=== PATIENT | male | born 2000 | race Hispanic/Latino ===

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

== ENCOUNTER 2022-02-03 15:25 | Emergency (ER) | payer OTHER ==
--- OUTSIDE RECORDS SUMMARY | 2022-02-03 15:29 | XMS REPORT | Continuity of Care Document ---
:2000 Author Organization [facility] t Address [address] [place] [address] Care Team Providers Name Role Phone Nathalie Dumont Primary Care Physician [phone] Problems This patient has no known problems. Allergies, Adverse Reactions, Alerts Allergy Allergy Status Severity Reaction(s) Onset Inactive Treating Comm ents Source Name Type Date Date Clinician Mesna - Propensi Active 0 Intraven ty to 6-17 ous adverse 00:00: reaction 00 to drug Medications Ordered Filled Start Stop Current Ordering Indication Dosage Frequency Signature Comments Components Source Medication Medication Date Date Medication? Clinician (SIG) Name Name TAKE 1 2021-0 No 5 TABLET 7-20 DAILY. 00:00: 00 [...] tablet,exte 00:00: nded 00 release Concerta 36 2018-1 No 2mg mg 2-17 tablet,exte 00:00: nded 00 release trazodone 2018-1 No 1mg 50 mg 2-17 tablet 00:00: 00 mupirocin 2 2018- No 1% % topical 2-02 ointment 00:00: 00 cephalexin 2018- No 1mg 500 mg 2-02 capsule 00:00: 00 Bromfed DM 2019-1 No 75mg/5 2 mg-30 2-02 mL mg-10 [...] pounds Height Measured 2020-04-24 17:08:00 73.23 inches BP Systolic 2019-06-20 09:28:00 127 mm[Hg] BP Diastolic 2019-06-20 09:28:00 75 mm[Hg] Weight Measured 2019-06-20 09:28:00 193.00 pounds Height Measured 2019-06-20 09:28:00 73.23 inches Body Temperature 2019-06-20 09:28:00 97.90 degrees Heart Rate 2019-06-20 09:28:00 67.00 /min Respiratory Rate 2019-06-20 09:28:00 18.00 /min Height Measured 2019-05-03 15:38:00 72.05 inches Body Temperature 2019-05-03 15:38:00 98.20 degrees Heart Rate 2019-05-03 15:38:00 83.00 /min Respiratory Rate 2019-05-03 15:38:00 BP Systolic 2019-05-03 15:38:00 137 mm[Hg] BP Diastolic 2019-05-03 15:38:00 57 mm[Hg] Weight Measured 2019-05-03 15:38:00 194.60 pounds BP Systolic 2019-04-30 11:06:00 143 mm[Hg] BP [...] Goal Plan of Care Note [code = 58291-6] Goal Plan of Care Note [code = 44390-8] Goal Plan of Care Note [code = 83595-2] Goal Plan of Care Note [code = 86074-3] Goal Plan of Care Note [code = 21983-2] Goal Plan of Care Note [code = 71546-1] Goal Plan of Care Note [code = 73784-0] Goal Plan of Care Note [code = 06707-6] Goal Plan of Care Note [code = 56372-5] Goal Plan of Care Note [code = 96028-4] Goal Plan of Care Note [code = 85497-4] Goal Plan of Care Note [code = 85175-7] Goal Plan of Care Note [code = 01939-2] Goal Plan of Care Note [code = 53218-6] Goal Plan of Care Note [code = 25222-4] Goal Plan of Care Note [code = 23834-6] Goal Plan of Care Note [code = 03109-8] Goal Plan of Care Note [code = 24041-1] Goal Plan of Care Note [code = 60975-4] Goal Plan of Care Note [code = 94068-8] Encounters Start End Encounter Admission Attending Care Care Encounter Source Date/Time Date/Time Type Type Clinicians Facility Department ID 2021-10-29 2021-10-29 Outpatient [id number] 00:00:00 00:00:00 Visit [id number] Results Test Description Test Time Test Comments Results Result Comments Source CT/NG, NAAT, URINE 2021-09-27 17:38:08 Test Item Value Reference Range Interpretation Comme nts GONORRHEA, NAAT NEGATIVE NEGATIVE IMPORTA NT NOTICE: SEE ANNOUNCEMENT AT (test code = [email or web address] Note: 76857) Assay methodolo gy is nucleic acid amplification by transcriptio n mediated amplification (TMA) utilizing the A ptima Combo 2 Assay. CHLAMYDIA, NAAT NEGATIVE NEGATIVE IMPORTA NT NOTICE: SEE ANNOUNCEMENT AT (test code = [email or web address]/TeachernowrineXenapto Note: 61037) Assay methodolo gy is nucleic acid amplification by transcriptio n mediated amplification (TMA) utilizing the A ptima Combo 2 Assay. GC AND CHLAMYDIA, AMPLIFIED, [id number] 00:00:00 Test Item Value Reference Range Interpretation Comments GONORRHEA, NAAT (test code = 86698) NEGATIVE CHLAMYDIA, NAAT (test code = 85138) NEGATIVE HIV 1/2 4TH GEN, RFLX [id number] 04:17:29 Test Item Value Reference Range Interpretation Comments HIV 1/2 4TH GEN, RFLX CONF (test NON-REACTIVE NON-REACTIVE code = 3514) HEPATITIS PANEL, [id number] 04:17:29 Test Item Value Reference Range Interpretation Comments HEPATITIS A IgM (test NON-REACTIVE NON-REACTIVE code = 77438) HEPATITIS B CORE IgM NON-REACTIVE NON-REACTIVE (test code = 4644) HEPATITIS B SURF AG NON-REACTIVE NON-REACTIVE (test code = 2739) HEPATITIS C ANTIBODY NON-REACTIVE NON-REACTIVE (test code = 4675) INTERPRETATION (NOTE) Hepatitis A HEPATITIS A: (test serology shows no code = 2552) evidence of acu te hepatitis A. INTERPRETATION (NOTE) Hepatitis B HEPATITIS B: (test serology shows no code = 98001) evidence of ac jarrod hepatitis B and no indication of exposure to hepatitis B vir us in the previous si xto eight months. INTERPRETATION (NOTE) Hepatitis C HEPATITIS C: (test serology shows no code = 50308) evidence of ex posure to hepatitisC v irus at this time. I t can take up to 12 m onths after exposure tothe hepatitis C vir us for antibodies to become detectab le in the blood in ce rtain patients. UNLES S OTHERWISE INDIC ATED, ALL TESTING PERFORMED [facility], [facility]. [address] [place] [id number] [place] [address] DIRECTOR: Madelin DAILEYIA NUMBER [id number] [place] [id number] 03:37:13 Test Item Value Reference Range Interpretation Comments RPR RESULT (test code = NON-REACTIVE NON-REACTIVE 3501) RPR TITER (test code = 3500) NOT INDIC. TITER NOT INDIC. HIV AB/AG COMBO RFLX [id number] 00:00:00 Test Item Value Reference Range Interpretation Comments HIV 1/2 4TH GEN, RFLX CONF (test NON-REACTIVE code = 3514) [id number] 00:00:00 Test Item Value Reference Range Interpretation Comments RPR RESULT (test code = NON-REACTIVE 3501) RPR TITER (test code = 3500) NOT INDIC. TITER [id number] 00:00:00 Test Item Value Reference Range Interpretation Comments RPR RESULT (test code = NON-REACTIVE 3501) RPR TITER (test code = 3500) NOT INDIC. TITER ACUTE HEPATITIS [id number] 00:00:00 Test Item Value Reference Range Interpretation Comments HEPATITIS A IgM (test code = NON-REACTIVE 08987) HEPATITIS B CORE IgM (test code NON-REACTIVE = 4644) HEPATITIS B SURF AG (test code = NON-REACTIVE 8939) HEPATITIS C ANTIBODY (test code NON-REACTIVE = 2175) INTERPRETATION HEPATITIS A: (NOTE) (test code = 2552) INTERPRETATION HEPATITIS B: (NOTE) (test code = 73508) INTERPRETATION HEPATITIS C: (NOTE) (test code = 08087) CHLAMYDIA/N. GONORRHOEAE RNA, [id number] 00:00:00 Test Item Value Reference Range Interpretation Comments CHLAMYDIA TRACHOMATIS RNA, TMA, NOT DETECTED UROGENITAL (test code = 49602-9) NEISSERIA GONORRHOEAE RNA, TMA, NOT DETECTED UROGENITAL (test code = 16636-4) COMMENT (test code = ) CBC (INCLUDES [...] BAND NEUTROPHILS DNR cells/uL (test code = 41238-2) ABSOLUTE METAMYELOCYTES (test DNR cells/uL code = 99059-2) ABSOLUTE MYELOCYTES (test DNR cells/uL code = 09870-7) ABSOLUTE PROMYELOCYTES (test DNR cells/uL code = 83877-9) ABSOLUTE LYMPHOCYTES (test 2025 cells/uL code = 731-0) ABSOLUTE MONOCYTES (test code 237 cells/uL = 742-7) ABSOLUTE EOSINOPHILS (test 120 cells/uL code = 711-2) ABSOLUTE BASOPHILS (test code 22 cells/uL = 704-7) ABSOLUTE BLASTS (test code = DNR cells/uL 02222-9) ABSOLUTE NUCLEATED RBC (test DNR cells/uL code = 46174-7) NEUTROPHILS (test code = 44.1 % 770-8) BAND NEUTROPHILS (test code = DNR % 764-1) METAMYELOCYTES (test code = DNR % 740-1) MYELOCYTES (test code = DNR % 749-2) PROMYELOCYTES (test code = DNR % 783-1) LYMPHOCYTES (test code = 47.1 % 736-9) REACTIVE LYMPHOCYTES (test DNR % code = 98062-0) MONOCYTES (test code = 5.5 % 5905-5) EOSINOPHILS (test code = 2.8 % 713-8) BASOPHILS (test code = 706-2) 0.5 % BLASTS (test code = 709-6) DNR % NUCLEATED RBC (test code = DNR /100WBC 00482-3) COMMENT(S) (test code = DNR 8251-1) HIV 1/2 ANTIGEN/ANTIBODY,FOURTH GENERATION [id number] 00:00:00 Test Item Value Reference Range Interpretation Comments HIV AG/AB, 4TH GEN (test code = NON-REACTIVE 39837-9) LIPID PANEL (REFL)[id number] 00:00:00 Test Item Value Reference Range Interpretation Comments CHOLESTEROL, TOTAL (test code 150 mg/dL = 2093-3) HDL CHOLESTEROL (test code = 54 mg/dL 2085-9) TRIGLYCERIDES (test code = 89 mg/dL 2571-8) LDL-CHOLESTEROL (test code = 79 mg/dL(calc) 29983-8) CHOL/HDLC RATIO (test code = 2.8 (calc) 9830-1) NON HDL CHOLESTEROL (test code 96 mg/dL(calc) = 62265-8) HEPATITIS PANEL, [id number] 00:00:00 Test Item Value Reference Range Interpretation Comments HEPATITIS A AB, TOTAL (test code REACTIVE = 25364-1) HEPATITIS B SURFACE ANTIBODY QL NON-REACTIVE (test code = 00551-1) HEPATITIS B SURFACE ANTIGEN NON-REACTIVE (test code = 5196-1) CONFIRMATION (test code = DNR 7905-3) HEPATITIS B CORE AB TOTAL (test NON-REACTIVE code = 76544-2) HEPATITIS C ANTIBODY (test code NON-REACTIVE = 81914-9) SIGNAL TO CUT-OFF (test code = 0.01 11791-1) COMPREHENSIVE METABOLIC [id number] 00:00:00 Test Item Value Reference Range Interpretation Comments GLUCOSE (test code = 113 mg/dL 2345-7) UREA NITROGEN (BUN) 13 mg/dL (test code = 3094-0) CREATININE (test code = 0.83 mg/dL 2160-0) eGFR NON-AFR. AZERBAIJANI DNR mL/min/1.73m2 (test code = 83221-9) eGFR DNR mL/min/1.73m2 (test code = 78901-0) BUN/CREATININE RATIO NOT APPLICABLE (calc) (test code = 3097-3) SODIUM (test code = 138 mmol/L 2951-2) POTASSIUM (test code = 4.2 mmol/L 2823-3) CHLORIDE (test code = 106 mmol/L 2075-0) CARBON DIOXIDE (test 23 mmol/L code = 2027-9) CALCIUM (test code = 10.2 mg/dL 64005-2) PROTEIN, TOTAL (test 7.6 g/dL code = 2885-2) ALBUMIN (test code = 4.6 g/dL 1751-7) GLOBULIN (test code = 3.0 g/dL(calc) 87169-5) ALBUMIN/GLOBULIN RATIO 1.5 (calc) (test code = 1759-0) BILIRUBIN, TOTAL (test 0.6 mg/dL code = 1975-2) ALKALINE PHOSPHATASE 204 U/L (test code = 6768-6) AST (test code = 19 U/L 1920-8) ALT (test code = 31 U/L 1742-6) RPR (MONITOR) W/REFL [id number] 00:00:00 Test Item Value Reference Range Interpretation Comments RPR (MONITOR) W/REFL TITER (test NON-REACTIVE code = 20990-5) HEMOGLOBIN [id number] 00:00:00 Test Item Value Reference Range Interpretation Comments HEMOGLOBIN A1c (test code = 5.7 %[facility] 45[facility]-4) CBC (INCLUDES DIFF/PLT)2018-07-19 00:00:00 Test Item [...] BAND NEUTROPHILS DNR cells/uL (test code = 43504-5) ABSOLUTE METAMYELOCYTES (test DNR cells/uL code = 23567-6) ABSOLUTE MYELOCYTES (test DNR cells/uL code = 01629-4) ABSOLUTE PROMYELOCYTES (test DNR cells/uL code = 43206-5) ABSOLUTE LYMPHOCYTES (test 1624 cells/uL code = 731-0) ABSOLUTE MONOCYTES (test code 151 cells/uL = 742-7) ABSOLUTE EOSINOPHILS (test 119 cells/uL code = 711-2) ABSOLUTE BASOPHILS (test code 22 cells/uL = 704-7) ABSOLUTE BLASTS (test code = DNR cells/uL 67742-0) ABSOLUTE NUCLEATED RBC (test DNR cells/uL code = 59140-1) NEUTROPHILS (test code = 46.8 % 770-8) BAND NEUTROPHILS (test code = DNR % 764-1) METAMYELOCYTES (test code = DNR % 740-1) MYELOCYTES (test code = DNR % 749-2) PROMYELOCYTES (test code = DNR % 783-1) LYMPHOCYTES (test code = 45.1 % 736-9) REACTIVE LYMPHOCYTES (test DNR % code = 71371-2) MONOCYTES (test code = 4.2 % 5905-5) EOSINOPHILS (test code = 3.3 % 713-8) BASOPHILS (test code = 706-2) 0.6 % BLASTS (test code = 709-6) DNR % NUCLEATED RBC (test code = DNR /100WBC 29935-2) COMMENT(S) (test code = DNR 8251-1) LIPID PANEL (REFL)2018-07-19 00:00:00 Test Item Value Reference Range Interpretation Comments CHOLESTEROL, TOTAL (test code 232 mg/dL = 2093-3) HDL CHOLESTEROL (test code = 40 mg/dL 2085-9) TRIGLYCERIDES (test code = 90 mg/dL 2571-8) LDL-CHOLESTEROL (test code = 172 mg/dL(calc) 72492-0) CHOL/HDLC RATIO (test code = 5.8 (calc) 9830-1) NON HDL CHOLESTEROL (test 192 mg/dL(calc) code = 54877-7) COMPREHENSIVE METABOLIC [id number] 00:00:00 Test Item Value Reference Range Interpretation Comments GLUCOSE (test code = 94 mg/dL 2345-7) UREA NITROGEN (BUN) 14 mg/dL (test code = 3094-0) CREATININE (test code = 0.73 mg/dL 2160-0) eGFR NON-AFR. AZERBAIJANI DNR mL/min/1.73m2 (test code = 96701-3) eGFR DNR mL/min/1.73m2 (test code = 72541-7) BUN/CREATININE RATIO NOT APPLICABLE (calc) (test code = 3097-3) SODIUM (test code = 139 mmol/L 2951-2) POTASSIUM (test code = 4.2 mmol/L 2823-3) CHLORIDE (test code = 103 mmol/L 5-0) CARBON DIOXIDE (test 23 mmol/L code = 2027-9) CALCIUM (test code = 10.3 mg/dL 19143-5) PROTEIN, TOTAL (test 7.9 g/dL code = 2885-2) ALBUMIN (test code = 4.7 g/dL 1751-7) GLOBULIN (test code = 3.2 g/dL(calc) 06900-3) ALBUMIN/GLOBULIN RATIO 1.5 (calc) (test code = 1759-0) BILIRUBIN, TOTAL (test 0.8 mg/dL code = 1975-2) ALKALINE PHOSPHATASE 387 U/L (test code = 6768-6) AST (test code = 19 U/L 1920-8) ALT (test code = 15 U/L 1742-6) [id number] 00:00:00 Test Item Value Reference Range Interpretation Comments TSH (test code = 3016-3) 2.12 mIU/L HEMOGLOBIN [id number] 00:00:00 Test Item Value Reference Range Interpretation Comments HEMOGLOBIN A1c (test code = 5.9 %[facility] 4548-4)
[2022-02-03] MEDS ORDERED: IBUPROFEN 200 MG TAB PO ONE (15:52)
[2022-02-03] MEDS ORDERED: IBUPROFEN 400 MG TAB ONE (15:53)
--- NOTE | 2022-02-03 16:54 | RAD REPORT ---
EXAM DESCRIPTION: RAD - Foot Right 3 View - 02/03/2022 4:41 pm CLINICAL HISTORY: PAIN COMPARISON: Foot Right 3 View dated 10/28/2016 FINDINGS: No fracture or dislocation is seen.
--- NOTE | 2022-02-03 17:06 | ER ---
Nurse's Notes [facility] Name: Richard Woods Age: 21 yrs Sex: Male : 2000 Arrival Date: 02/03/2022 Time: 15:30 Bed 10 Private MD: Diagnosis: Pain in right foot Presentation: 02/03 15:33 Chief complaint: Patient states: Tripped and fell down the stairs - 2-3 days ago. Pt ld1 c/o pain to right foot. Coronavirus screen: At this time, the client does not indicate any symptoms associated with coronavirus-19. Ebola Screen: No symptoms or risks identified at this time. Initial Sepsis Screen: Does the patient meet any 2 criteria? No. Patient's initial sepsis screen is negative. Does the patient have a suspected source of infection? No. Patient's initial sepsis screen is negative. Risk Assessment: Do you want to hurt yourself or someone else? Patient reports no desire to harm self or others. Onset of symptoms was February 03, 2022. 15:33 Method Of Arrival: Ambulatory ld1 15:33 Acuity: YANI 4 ld1 Triage Assessment: 15:35 General: Appears in no apparent distress. comfortable, Behavior is calm, cooperative, ld1 appropriate for age. Pain: Complains of pain in right foot Pain does not radiate. Pain currently is 6 out of 10 on a pain scale. Quality of pain is described as throbbing. EENT: No signs and/or symptoms were reported regarding the EENT system. Neuro: Level of Consciousness is awake, alert, obeys commands, Oriented to person, place, time, situation. Cardiovascular: Capillary refill < 3 seconds Patient's skin is warm and dry. Respiratory: Airway is patent Respiratory effort is even, unlabored. GI: Abdomen is flat, non-distended. : No signs and/or symptoms were reported regarding the genitourinary system. Derm: No signs and/or symptoms reported regarding the dermatologic system. Musculoskeletal: No signs and/or symptoms reported regarding the musculoskeletal system. Historical: - Allergies: 15:35 No Known Allergies; ld1 - Home Meds: 15:35 lisinopril 10 mg Oral tab 1 tab once daily [Active]; ld1 - PMHx: 15:35 Hypertensive disorder; ld1 - PSHx: 15:35 None; ld1 - Immunization history:: Adult Immunizations up to date, Client reports receiving the 2nd dose of the Covid vaccine. - Social history:: Smoking status: Patient denies any tobacco usage or history of. Patient/guardian denies using alcohol. Screenin:12 Abuse screen: Denies threats or abuse. Denies injuries from another. Nutritional ph screening: No deficits noted. Tuberculosis screening: No symptoms or risk factors identified. Fall Risk None identified. Assessment: 16:11 General: Appears in no apparent distress. comfortable, Behavior is calm, cooperative, ph appropriate for age. Pain: Complains of pain in right foot. Neuro: Level of Consciousness is awake, alert, obeys commands, Oriented to person, place, time, situation. Derm: Skin is healthy with good turgor, Skin is pink, warm \T\ dry. Derm: Bruising that is dark purple, on lateral side of right foot. Musculoskeletal: Circulation, motion, and sensation intact. Range of motion: intact in all extremities. Vital Signs: 15:33 Pulse 76; Resp 18; Temp 97.8(TE); Pulse Ox 100% ; Weight 95.25 kg; Height 6 ft. 2 in. ld1 (187.96 cm); Pain 6/10; 15:36 BP 163 / 93; ld1 15:33 Body Mass Index 26.96 (95.25 kg, 187.96 cm) ld1 ED Course: 15:30 Patient arrived in ED. mr 15:31 Evans Contrerasistin, [place] [facility] kb 15:31 Jose Francisco Scruggs MD is Attending Physician. kb 15:35 Triage completed. ld1 15:35 Arm band placed on right wrist. ld1 15:44 Lilly An, RN is Primary Nurse. ph 16:12 Patient has correct armband on for positive identification. Bed in low position. Call ph light in reach. Side rails up X 1. Door closed. Noise minimized. 16:43 Foot Right 3 View XRAY In Process Unspecified. EDMS Administered Medications: 16:11 Drug: Ibuprofen 600 mg Route: PO; ph 16:11 Follow up: Response: No adverse reaction ph Medication: 16:12 VIS not applicable for this client. ph Outcome: 17:05 Discharge ordered by . kb 17:31 Patient left the ED. ph Signatures: Dispatcher [employer] EDMS Ben, Joan, DOORKEEPER-C DOORKEEPER-Troyb Carmen Patiño mr Lilly An, RN RN Leyla Toney RN RN ld1
--- NOTE | 2022-02-03 17:06 | EDPHYS ---
Physician Documentation [facility] Name: Richard Woods Age: 21 yrs Sex: Male : 2000 Arrival Date: 02/03/2022 Time: 15:30 Bed 10 Private MD: [place] Physician Jose Francisco Scruggs HPI: 02/03 18:04 This 21 yrs old Male presents to ER via Ambulatory with complaints of Foot kb Injury. 18:04 The patient presents with pain. The complaints affect the right foot. Context: The kb problem was sustained at home, resulted from the patient falling, the patient can fully bear weight, the patient is able to ambulate. Onset: The symptoms/episode began/occurred 3 day(s) ago. Modifying factors: The symptoms are alleviated by nothing, the symptoms are aggravated by weight bearing. Associated signs and symptoms: The patient has no apparent associated signs or symptoms. Severity of symptoms: At their worst the symptoms were mild, moderate, in the emergency department the symptoms are unchanged. The patient has not experienced similar symptoms in the past. The patient has not recently seen a physician. Pt reports he fell down about 3 steps 3-4 days ago and has had pain to lateral right foot since then. . Historical: - Allergies: 15:35 No Known Allergies; ld1 - Home Meds: 15:35 lisinopril 10 mg Oral tab 1 tab once daily [Active]; ld1 - PMHx: 15:35 Hypertensive disorder; ld1 - PSHx: 15:35 None; ld1 - Immunization history:: Adult Immunizations up to date, Client reports receiving the 2nd dose of the Covid vaccine. - Social history:: Smoking status: Patient denies any tobacco usage or history of. Patient/guardian denies using alcohol. ROS: 18:04 Constitutional: Negative for fever, chills, and weight loss. kb 18:04 MS/extremity: Positive for pain, of the lateral side of right foot. 18:04 All other systems are negative. Exam: 18:04 Constitutional: This is a well developed, well nourished patient who is awake, alert, kb and in no acute distress. Head/Face: Normocephalic, atraumatic. ENT: Moist Mucous membranes Cardiovascular: Regular rate and rhythm with a normal S1 and S2. No gallops, murmurs, or rubs. No pulse deficits. Respiratory: Respirations even and unlabored. No increased work of breathing. Talking in full sentences Abdomen/GI: Soft, non-tender. No distention Skin: Warm, dry with normal turgor. Normal color. Neuro: Awake and alert, GCS 15, oriented to person, place, time, and situation. Moves all extremities. Normal gait. Psych: Awake, alert, with orientation to person, place and time. Behavior, mood, and affect are within normal limits. 18:04 Musculoskeletal/extremity: Extremities: grossly normal except: noted in the lateral side of right foot: pain, tenderness, ROM: intact in all extremities, Circulation is intact in all extremities. Sensation intact. Weight bearing: able to fully bear weight. Vital Signs: 15:33 Pulse 76; Resp 18; Temp 97.8(TE); Pulse Ox 100% ; Weight 95.25 kg; Height 6 ft. 2 in. ld1 (187.96 cm); Pain 6/10; 15:36 BP 163 / 93; ld1 15:33 Body Mass Index 26.96 (95.25 kg, 187.96 cm) ld1 MDM: 15:31 Patient medically screened. kb 17:04 Data reviewed: vital signs, nurses notes. Data interpreted: Pulse oximetry: on room air kb is 100 %. Interpretation: normal. Counseling: I had a detailed discussion with the patient and/or guardian regarding: the historical points, exam findings, and any diagnostic results supporting the discharge/admit diagnosis, radiology results, the need for outpatient follow up, a family practitioner, to return to the emergency department if symptoms worsen or persist or if there are any questions or concerns that arise at home. 02/03 15:35 Order name: Foot Right 3 View XRAY; Complete Time: 17:04 kb Administered Medications: 16:11 Drug: Ibuprofen 600 mg Route: PO; ph 16:11 Follow up: Response: No adverse reaction ph Disposition Summary: 02/03/22 17:05 Discharge Ordered Location: Home Condition: Stable kb Diagnosis - Pain in right foot kb Followup: kb - With: Emergency Department - When: As needed - Reason: Worsening of condition Followup: kb - With: Private Physician - When: 2 - 3 days - Reason: Recheck today's complaints, Continuance of care, Re-evaluation by your physician Discharge Instructions: - Discharge Summary Sheet kb - Musculoskeletal Pain kb - Contusion, [id number]-Vned kb Forms: - Medication Reconciliation Form kb - Thank You Letter kb - Antibiotic Education kb - Prescription Opioid Use kb Prescriptions: - Ibuprofen 800 mg Oral Tablet - take 1 tablet by ORAL route every 8 hours As needed take with food; 30 tablet; kb Refills: 0, Product Selection Permitted Signatures: Dispatcher [employer] EDJoan Williamson FNP-C FNP-Ckb Hall, Patricia RN RN Leyla Toney RN RN ld1
[2022-02-03 18:41] VITALS: TEMP 97.8; O2SAT 100
[2022-02-03 18:42] VITALS: BP 163/93
== END 2022-02-03 17:31 | disposition home or self-care (01) ==
LOC: ER 15:25
DX: M79.671 Pain in right foot (principal); I10 Essential (primary) hypertension
CPT/HCPCS: 99283